=== PATIENT | female | born 1960 | race Native Hawaiian/Other Pacific Islander ===

== ENCOUNTER → 2016-09-10 | Outpatient (CLI) | payer OTHER ==
--- NOTE | 2016-09-12 07:01 | MM ---
Reason for exam: screening (asymptomatic). Last mammogram was performed 13 years and 7 months ago. History: Family history of breast cancer in mother. Took hormonal contraceptives for 4 years. Physical Findings: A clinical breast exam by your physician is recommended on an annual basis and results should be correlated with mammographic findings. MG Screening Mammo w CAD Bilateral CC and MLO view(s) were taken. No prior studies available for comparison. The breast tissue is heterogeneously dense. This may lower the sensitivity of mammography. There is no discrete abnormality. ASSESSMENT: Negative, BI-RAD 1 RECOMMENDATION: Routine screening mammogram of both breasts in 1 year.
== END | disposition home or self-care (01) ==
LOC: RADMAMWWP 14:41
PROVIDERS: ATTEND Internal Medicine
DX: Z12.31 Encounter for screening mammogram for malignant neoplasm of breast (principal)

== ENCOUNTER 2017-10-02 20:21 | Emergency (ER) | payer OTHER ==
[2017-10-02 20:35] VITALS: RESP 18; TEMP 98.8
[2017-10-02] MEDS ORDERED: Acetaminophen-Codeine 300-30mg TAB PO STA (20:47)
--- NOTE | 2017-10-02 20:54 | ED ---
General Adult HPI <Ryan Alvarado - Last Filed: 10/02/17 22:08> - General Source: patient Mode of arrival: ambulatory Limitations: no limitations <Kendall Cleaning - Last Filed: 10/02/17 22:45> - General Chief complaint: Extremity Injury, Upper Stated complaint: Fall, arm injury Time Seen by Provider: 10/02/17 20:39 - History of Present Illness Initial comments: 57-year-old female presents for chief complaint of pain in the left wrist. Patient states she was walking on the ice when she slipped and fell forward onto her left hand. Patient denies hitting her head. Denies any pain in her elbow or right wrist. Patient states she can move her fingers but it is painful. Patient denies ever having surgery on the wrist or injuring that wrist before. (Kendall Cleaning) - Related Data Home Medications Medication Instructions Recorded Confirmed Ascorbic Acid [Vitamin C] 500 mg PO DAILY 10/02/17 10/02/17 Previous Rx's Medication Instructions Recorded HYDROcodone/APAP 5-325MG [[place] 1 tab PO Q6HR PRN #10 tab 10/02/17 5-325] Allergies Allergy/AdvReac Type Severity Reaction Status Date / Time Beef Containing Products Allergy Rash/Hives Verified 10/02/17 20:39 [Beef] egg Allergy Rash/Hives Verified 10/02/17 20:39 peanut Allergy Rash/Hives Verified 10/02/17 20:39 Poultry Allergy Rash/Hives Verified 10/02/17 20:39 Squash Allergy Rash/Hives Verified 10/02/17 20:39 turkey Allergy Rash/Hives Verified 10/02/17 20:39 Review of Systems ROS Other: All systems not noted in ROS Statement are negative. <Ryan Alvarado - Last Filed: 10/02/17 22:08> ROS Other: All systems not noted in ROS Statement are negative. <Kendall Cleaning - Last Filed: 10/02/17 22:45> ROS Statement: Those systems with pertinent positive or pertinent negative responses have been documented in the HPI. Past Medical History Past Medical History: No Reported History History of Any Multi-Drug Resistant Organisms: None Reported Additional Past Surgical History / Comment(s): D&C Past Psychological History: No Psychological Hx Reported Smoking Status: Never smoker Past Alcohol Use History: None Reported Past Drug Use History: None Reported <Kendall Cleaning - Last Filed: 10/02/17 22:45> General Exam Limitations: no limitations Head exam: Present: atraumatic, normocephalic, normal inspection Respiratory exam: Present: normal lung sounds bilaterally. Absent: respiratory distress, wheezes, rales, rhonchi, stridor Cardiovascular Exam: Present: regular rate, normal rhythm, normal heart sounds. Absent: systolic murmur, diastolic murmur, rubs, gallop, clicks GI/Abdominal exam: Present: soft, normal bowel sounds. Absent: distended, tenderness, guarding, rebound, rigid Extremities exam: Present: full ROM (Limited range of motion of the left wrist) , tenderness (Tenderness of the left wrist), normal capillary refill (Left wrist ), other (There is a deformity on the dorsal wrist, sensation is intact within all digits of the left hand.). Absent: pedal edema, joint swelling, calf tenderness <Kendall Cleaning - Last Filed: 10/02/17 22:45> Course <Ryan Alvarado - Last Filed: 10/02/17 22:08> <Kendall Cleaning P - Last Filed: 10/02/17 22:45> Vital Signs 10/02/17 10/02/17 10/02/17 20:32 21:42 22:32 Temperature 98.8 F Pulse Rate 75 67 69 Respiratory 18 18 18 Rate Blood Pressure 160/91 150/83 119/70 O2 Sat by Pulse 99 69 L Oximetry Spoke withThe Dr. Chavez about the patient Dr. Spicer recommended we do want a Volar splint and referred to Dr. Benjie Valladares in the morning, I examined the patient myself there is no neurovascular compromise there is no tenting over the site of the fracture and there is no obvious risk of fracture turning into open fracture (Ryan Alvarado) Medical Decision Making <Ryan Alvarado - Last Filed: 10/02/17 22:08> <Kendall Cleaning - Last Filed: 10/02/17 22:45> - Medical Decision Making 57-year-old female presents to the emergency department for a chief complaint of pain in the left wrist. Patient fell today on her left hand when she slipped on ice. Patient denies hitting her head or her right wrist. X-ray shows an impacted comminuted transverse fracture of the distal radius with proximal and posterior displacement. There is also a large chip fracture of the ulnar styloid process. The patient was given Tylenol with Codeine for pain relief as she requested something not too strong. On exam patient is able to move all digits in the left extremity. Capillary refill is intact. Dr. Alvarado consulted Dr. Chavez. Dr. Chavez recommended not to do a reduction in the emergency department. He recommended follow-up with Dr. Valladares. She was given morphine after we discovered the reduction would not be occurring tonight. Patient will be given a starter pack of [place] and a small prescription of [place] as well. Patient agrees to follow up with Dr. Valladares tomorrow. (Kendall Cleaning) Disposition <Ryan Alvarado - Last Filed: 10/02/17 22:08> Time of Disposition: 22:38 <Kendall Cleaning - Last Filed: 10/02/17 22:45> Clinical Impression: Wrist fracture Disposition: HOME SELF-CARE Condition: Good Instructions: Wrist Fracture in Adults (ED) Additional Instructions: Please follow up with orthopedics tomorrow. Please use [place] for pain relief. Please return to the emergency department if you begin to lose function of your hand or symptoms of pain worsen. Prescriptions: HYDROcodone/APAP 5-325MG [[place] 5-325] 1 tab PO Q6HR PRN #10 tab PRN Reason: Pain Referrals: None,Stated [Primary Care Provider] - 1-2 days Poncho Valladares DO [Doctor of Osteopathic Medicine] - 1-2 days
--- NOTE | 2017-10-02 21:19 | XR ---
EXAMINATION TYPE: XR wrist limited LT DATE OF EXAM: 10/02/2017 COMPARISON: NONE HISTORY: Fell today. Pain. TECHNIQUE: 3 views FINDINGS: There is impacted comminuted transverse fracture of the distal radius. There is proximal an d posterior displacement of the distal major fragments of 1.5 cm. There is no dislocation. There is a large chip fracture of the ulnar styloid process. Carpal bones are intact. IMPRESSION: Fractures of the distal radius and ulna as above.
[2017-10-02] MEDS ORDERED: MORPHINE SULFATE 4 MG/ML SYRINGE IVP STA (22:03)
[2017-10-02] MEDS ORDERED: ONDANSETRON 4 MG/2 ML VIAL IVP STA (22:04)
[2017-10-02 22:33] VITALS: BP 119/70; PULSE 69
[2017-10-02] MEDS ORDERED: ACET/COD 300 MG/30 MG STARTER PACK 6 TAB BTL PO STA (22:40)
== END 2017-10-02 22:59 | disposition home or self-care (01) ==
LOC: EC 20:21
DX: S52.502A Unspecified fracture of the lower end of left radius, initial encounter for closed fracture (principal); S52.612A Displaced fracture of left ulna styloid process, initial encounter for closed fracture; Z91.018 Allergy to other foods; Z91.011 Allergy to milk products; Z91.010 Allergy to peanuts; W00.0XXA Fall on same level due to ice and snow, initial encounter; Y93.01 Activity, walking, marching and hiking
CPT/HCPCS: 73100; 99283; 29125; 96374; 96375; J2270; J2405

== ENCOUNTER 2018-07-12 07:13 | Emergency (ER) | payer OTHER ==
[2018-07-12 07:19] VITALS: BP 154/87; PULSE 81; RESP 18; TEMP 98.1
--- NOTE | 2018-07-12 07:45 | ED ---
General Adult HPI - General Chief complaint: Allergic Reaction Stated complaint: Allergic Reaction Time Seen by Provider: 07/12/18 07:15 Source: patient, RN notes reviewed Mode of arrival: ambulatory Limitations: no limitations - History of Present Illness Initial comments: 57-year-old female presents with one-day history of swelling to the left eyelid. Patient concerned this may be ALLERGIC reaction and she has had many food ALLERGIES in the past. Describes swelling is only affecting her left eye. No tongue or lip swelling. No fever. No concern for ALLERGIC contact. She has noted some crusting to the outer lid. No change in vision. No pain in the eye itself. - Related Data Home Medications Medication Instructions Recorded Confirmed Ascorbic Acid [Vitamin C] 500 mg PO DAILY 10/02/17 10/02/17 Previous Rx's Medication Instructions Recorded HYDROcodone/APAP 5-325MG [[place] 1 tab PO Q6HR PRN #10 tab 10/02/17 5-325] Cephalexin [Keflex] 500 mg PO Q12HR #20 cap 07/12/18 Erythromycin Ophth Oint [Romycin 1 applic LEFT EYE QID #3.5 gm 07/12/18 Ophth Oint] Sulfamethox-Tmp 800-160Mg [Bactrim 1 tab PO Q12HR #20 tab 07/12/18 DS 800-160 mg] Allergies Allergy/AdvReac Type Severity Reaction Status Date / Time Beef Containing Products Allergy Rash/Hives Verified 07/12/18 07:19 [Beef] egg Allergy Rash/Hives Verified 07/12/18 07:19 peanut Allergy Rash/Hives Verified 07/12/18 07:19 Poultry Allergy Rash/Hives Verified 07/12/18 07:19 Squash Allergy Rash/Hives Verified 07/12/18 07:19 turkey Allergy Rash/Hives Verified 07/12/18 07:19 Review of Systems ROS Statement: Those systems with pertinent positive or pertinent negative responses have been documented in the HPI. ROS Other: All systems not noted in ROS Statement are negative. Past Medical History Past Medical History: No Reported History History of Any Multi-Drug Resistant Organisms: None Reported Additional Past Surgical History / Comment(s): D&C Past Psychological History: No Psychological Hx Reported Smoking Status: Never smoker Past Alcohol Use History: None Reported Past Drug Use History: None Reported General Exam Limitations: no limitations General appearance: alert, in no apparent distress Head exam: Present: atraumatic, normocephalic Eye exam: Present: PERRL, periorbital swelling, periorbital tenderness. Absent : conjunctival injection ENT exam: Present: normal exam, normal oropharynx, TM's normal bilaterally Neck exam: Present: normal inspection, full ROM. Absent: tenderness, meningismus Respiratory exam: Present: normal lung sounds bilaterally. Absent: respiratory distress, wheezes, rales Cardiovascular Exam: Present: regular rate, normal rhythm GI/Abdominal exam: Present: soft, distended Extremities exam: Present: normal inspection, normal capillary refill. Absent: pedal edema Neurological exam: Present: alert, oriented X3, CN II-XII intact. Absent: motor sensory deficit Course Vital Signs 07/12/18 07:16 Temperature 98.1 F Pulse Rate 81 Respiratory 18 Rate Blood Pressure 154/87 O2 Sat by Pulse 99 Oximetry Medical Decision Making - Medical Decision Making 57-year-old female presenting with left periorbital swelling. On exam there is edema to the lid with yellow crusting on the extensor surface. There is no conjunctivitis, no scleral injection, patient has normal vision. Extraocular motions are completely intact, normal pupillary reflex. There is no proptosis. Patient is well-appearing on remainder of exam. As this is unilateral swelling with no other tongue or lip swelling. I suspect an infectious component more than ALLERGIC. She'll be treated for periorbital cellulitis. She will return with worsening pain, development of fever. Disposition Clinical Impression: Periorbital cellulitis of left eye Disposition: HOME SELF-CARE Condition: Good Instructions: Periorbital Cellulitis in Adults (ED) Prescriptions: Cephalexin [Keflex] 500 mg PO Q12HR #20 cap Erythromycin Ophth Oint [Romycin Ophth Oint] 1 applic LEFT EYE QID #3.5 gm Sulfamethox-Tmp 800-160Mg [Bactrim DS 800-160 mg] 1 tab PO Q12HR #20 tab Is patient prescribed a controlled substance at d/c from ED?: No Referrals: Lamonte Reynolds MD [Primary Care Provider] - 1-2 days Isidro Snider MD [STAFF PHYSICIAN] - 1-2 days Time of Disposition: 07:39
== END 2018-07-12 07:55 | disposition home or self-care (01) ==
LOC: EC 07:13
DX: L03.213 Periorbital cellulitis (principal); Z91.018 Allergy to other foods; Z91.012 Allergy to eggs; Z91.010 Allergy to peanuts
CPT/HCPCS: 99283

== ENCOUNTER → 2018-08-20 | Outpatient (CLI) | payer OTHER ==
--- NOTE | 2018-08-22 09:01 | MM ---
Reason for exam: screening (asymptomatic). Last mammogram was performed 1 year and 11 months ago. History: Family history of breast cancer in mother. Took hormonal contraceptives for 4 years. Physical Findings: A clinical breast exam by your physician is recommended on an annual basis and results should be correlated with mammographic findings. MG Screening Mammo w CAD Bilateral CC and MLO view(s) were taken. Prior study comparison: September 10, 2016, bilateral MG screening mammo w CAD. February 09, 2003, bilateral screening mammogram. The breast tissue is heterogeneously dense. This may lower the sensitivity of mammography. No significant changes when compared with prior studies. ASSESSMENT: Benign, BI-RAD 2 RECOMMENDATION: Routine screening mammogram of both breasts in 1 year.
== END | disposition home or self-care (01) ==
LOC: RADMAMWWP 08:24
PROVIDERS: ATTEND Internal Medicine
DX: Z12.31 Encounter for screening mammogram for malignant neoplasm of breast (principal)
CPT/HCPCS: 77067

== ENCOUNTER → 2019-02-26 | Outpatient (CLI) | payer OTHER ==
--- NOTE | 2019-02-26 08:26 | US ---
EXAMINATION TYPE: US liver DATE OF EXAM: 02/26/2019 COMPARISON: NONE CLINICAL HISTORY: R94.5 Abnormal liver function test. abn labs, npo EXAM MEASUREMENTS: Liver Length: 12.9 cm Gallbladder Wall: 0.2 cm CBD: 0.3 cm Right Kidney: 10.2 x 4.3 x 3.8 cm Pancreas: Tail obscured by overlying bowel gas Liver: Appears echogenic in appearance heterogenous Gallbladder: wnl Evidence for sonographic De Leon's sign: neg CBD: wnl Right Kidney: wnl Visualized liver is heterogeneously hyperechoic without intrahepatic ductal dilatation. No surroundin g ascites. IMPRESSION: Diffuse fatty infiltration of liver versus product of underlying hepatocellular disease. Consider imaging guided random biopsy for tissue analysis.
== END | disposition home or self-care (01) ==
LOC: RADUSWWP 07:04
PROVIDERS: ATTEND Internal Medicine
DX: R94.5 Abnormal results of liver function studies (principal)
CPT/HCPCS: 76705

== ENCOUNTER 2020-06-30 07:56 | Emergency (ER) | payer OTHER ==
[2020-06-30 08:02] VITALS: BP 161/64; PULSE 91; RESP 18; TEMP 98.6
[2020-06-30] MEDS ORDERED: FAMOTIDINE 20 MG TAB PO STA (08:10)
[2020-06-30] MEDS ORDERED: methylPREDNISolone SOD SUCCI 125 MG/2 ML VIAL IM ONE (08:10)
[2020-06-30] MEDS ORDERED: LORATADINE 10 MG TAB PO STA (08:11)
--- NOTE | 2020-06-30 08:12 | ED ---
Eye Problem HPI - General Chief complaint: Eye Problems Stated complaint: Swollen eye Time Seen by Provider: 06/30/20 08:05 Source: patient, family Mode of arrival: ambulatory Limitations: no limitations - History of Present Illness Initial comments: 59yo female presenting for left eyelid swelling. pt states that she woke up with left eye swollen shut. she states it has been improving with ice placement. states symptoms identical to when she has had allergic reaction in the past. patient states that she was vaccumming and her daughter had dog over (which is allergic to). She states that she thinks this is cause, denies pain. Denies headaches, nausea, visual changes, denies redness of eye itself. Patient denies tongue/lip swelling, wheezing SOB or additional complaints. pt appears well nontoxic in no acute distress on arrival. - Related Data Home Medications Medication Instructions Recorded Confirmed Ascorbic Acid [Vitamin C] 500 mg PO DAILY 10/02/17 10/02/17 Previous Rx's Medication Instructions Recorded HYDROcodone/APAP 5-325MG [[place] 1 tab PO Q6HR PRN #10 tab 10/02/17 5-325] Cephalexin [Keflex] 500 mg PO Q12HR #20 cap 07/12/18 Erythromycin Ophth Oint [Romycin 1 applic LEFT EYE QID #3.5 gm 07/12/18 Ophth Oint] Sulfamethox-Tmp 800-160Mg [Bactrim 1 tab PO Q12HR #20 tab 07/12/18 DS 800-160 mg] Loratadine [Claritin] 5 mg PO DAILY 5 Days #5 tab 06/30/20 predniSONE 50 mg PO DAILY 3 Days #3 tab 06/30/20 Allergies Allergy/AdvReac Type Severity Reaction Status Date / Time Beef Containing Products Allergy Rash/Hives Verified 06/30/20 08:04 [Beef] egg Allergy Rash/Hives Verified 06/30/20 08:04 peanut Allergy Rash/Hives Verified 06/30/20 08:04 Penicillins Allergy Rash/Hives Verified 06/30/20 08:04 Poultry Allergy Rash/Hives Verified 06/30/20 08:04 Squash Allergy Rash/Hives Verified 06/30/20 08:04 turkey Allergy Rash/Hives Verified 06/30/20 08:04 erythromycin base AdvReac Nausea & Verified 06/30/20 08:04 [From Erythrocin] Vomiting & Diarrhea Review of Systems ROS Statement: Those systems with pertinent positive or pertinent negative responses have been documented in the HPI. ROS Other: All systems not noted in ROS Statement are negative. Past Medical History Past Medical History: Thyroid Disorder History of Any Multi-Drug Resistant Organisms: None Reported Additional Past Surgical History / Comment(s): D&C Past Psychological History: No Psychological Hx Reported Smoking Status: Never smoker Past Alcohol Use History: None Reported Past Drug Use History: None Reported General Exam - General Exam Comments Initial Comments: General: The patient is awake and alert, in no distress, and does not appear acutely ill. Eye: +3 mm pupils are equal, round and reactive to light, extra-ocular movements are intact. No nystagmus. There is normal conjunctiva bilaterally. No signs of icterus. Faint redness surrounding the left eye boggy in appearance of eye lid/under eye. no tenderness,no localized swelling to lid such as stye. Ears, nose, mouth and throat: There are moist mucous membranes and no oral lesions. Musculoskeletal: Normal ROM, no tenderness. Strength 5/5. Sensation intact. Pulses equal bilaterally 2+. Neurological: A&O x 3. CN II-XII intact, There are no obvious motor or sensory deficits. Coordination appears grossly intact. Speech is normal. Skin: Skin is warm and dry and no rashes or lesions are noted. Psychiatric: Cooperative, appropriate mood & affect, normal judgment. Limitations: no limitations Course Vital Signs 06/30/20 07:57 Temperature 98.6 F Pulse Rate 91 Respiratory 18 Rate Blood Pressure 161/64 O2 Sat by Pulse 99 Oximetry Medical Decision Making - Medical Decision Making Findings on physical exam appear most consistent with allergic reaction (great improvement quickly in swelling since AM with application of ice). does not appear infectious at this time. with hx of previous allergic reactions, pt will be initiated on short course of steroids and is to f/u with pcp. Dr Perez is agreeable to care plan and discharge. Disposition Clinical Impression: Allergic reaction, Swollen eyelid Disposition: HOME SELF-CARE Condition: Good Additional Instructions: Please use medication as discussed. Please follow-up with family doctor in the next 24 hours, if swelling worsening or becomes painful return to the ER. Please return to emergency room if the symptoms increase or worsen or for any other concerns. Prescriptions: Loratadine [Claritin] 5 mg PO DAILY 5 Days #5 tab predniSONE 50 mg PO DAILY 3 Days #3 tab Is patient prescribed a controlled substance at d/c from ED?: No Referrals: Isidro Snider MD [Primary Care Provider] - 1-2 days Time of Disposition: 08:12
== END 2020-06-30 08:31 | disposition home or self-care (01) ==
LOC: EC 07:56
DX: T78.40XA Allergy, unspecified, initial encounter (principal); Z91.018 Allergy to other foods; Z91.010 Allergy to peanuts; Z88.0 Allergy status to penicillin; Z91.012 Allergy to eggs; Z91.09 Other allergy status, other than to drugs and biological substances; Z88.1 Allergy status to other antibiotic agents
CPT/HCPCS: 99283; 96372; J2930

== ENCOUNTER 2020-09-13 16:09 | Emergency (ER) | payer OTHER ==
[2020-09-13 16:19] VITALS: RESP 18
[2020-09-13] MEDS ORDERED: FLUORESCEIN STRIPS 1 MG STRIP LEFT EYE ONE (17:20)
[2020-09-13] MEDS ORDERED: PROPARACAINE 0.5% OPHTH DROPS 15 ML BTL RIGHT EYE STA (17:20)
[2020-09-13] MEDS ORDERED: predniSONE 50 MG TAB PO STA (17:44)
--- NOTE | 2020-09-13 17:45 | ED ---
Eye Problem HPI - General Chief complaint: Eye Problems Stated complaint: Eye allergies/swelling Time Seen by Provider: 09/13/20 17:06 Source: patient Mode of arrival: ambulatory Limitations: no limitations - History of Present Illness Initial comments: 59-year-old female presents to the emergency department with a chief complaint of left eye swelling. Patient reports she has ALLERGIES at this is a common occurrence for her. Patient states typically treated with [id number] antihistamines but this time it does not work. Patient states she has been evaluated previously in the emergency department was discharged with prednisone. Eyes any blurry vision or pain with extra ocular movements but does report itching. Denies significant erythema around the eye. Denies any foreign bodies or injuries to the eye. She does not wear eye contacts, Only glasses. - Related Data Home Medications Medication Instructions Recorded Confirmed Ascorbic Acid [Vitamin C] 500 mg PO DAILY 10/02/17 10/02/17 Previous Rx's Medication Instructions Recorded HYDROcodone/APAP 5-325MG [[place] 1 tab PO Q6HR PRN #10 tab 10/02/17 5-325] Cephalexin [Keflex] 500 mg PO Q12HR #20 cap 07/12/18 Erythromycin Ophth Oint [Romycin 1 applic LEFT EYE QID #3.5 gm 07/12/18 Ophth Oint] Sulfamethox-Tmp 800-160Mg [Bactrim 1 tab PO Q12HR #20 tab 07/12/18 DS 800-160 mg] Loratadine [Claritin] 5 mg PO DAILY 5 Days #5 tab 06/30/20 predniSONE 50 mg PO DAILY 3 Days #3 tab 06/30/20 Ketotifen 0.025% Ophth Soln 1 drop BOTH EYES BID #1 bottle 09/13/20 [Zaditor] Allergies Allergy/AdvReac Type Severity Reaction Status Date / Time Beef Containing Products Allergy Rash/Hives Verified 09/13/20 16:19 [Beef] egg Allergy Rash/Hives Verified 09/13/20 16:19 peanut Allergy Rash/Hives Verified 09/13/20 16:19 Penicillins Allergy Rash/Hives Verified 09/13/20 16:19 Poultry Allergy Rash/Hives Verified 09/13/20 16:19 Squash Allergy Rash/Hives Verified 09/13/20 16:19 turkey Allergy Rash/Hives Verified 09/13/20 16:19 erythromycin base AdvReac Nausea & Verified 09/13/20 16:19 [From Erythrocin] Vomiting & Diarrhea Review of Systems ROS Statement: Those systems with pertinent positive or pertinent negative responses have been documented in the HPI. ROS Other: All systems not noted in ROS Statement are negative. Past Medical History Past Medical History: Thyroid Disorder History of Any Multi-Drug Resistant Organisms: None Reported Additional Past Surgical History / Comment(s): D&C Past Psychological History: No Psychological Hx Reported Smoking Status: Never smoker Past Alcohol Use History: None Reported Past Drug Use History: None Reported General Exam Limitations: no limitations General appearance: alert, in no apparent distress Head exam: Present: atraumatic, normocephalic, normal inspection Eye exam: Present: normal appearance, PERRL, EOMI, conjunctival injection (Very mild conjunctival injection.). Absent: scleral icterus, nystagmus, periorbital swelling, periorbital tenderness, other (Negative Tae sign. Fluorescence stain are unremarkable. No pain with extra ocular movements.) Pupils: Present: normal accommodation ENT exam: Present: normal exam, normal oropharynx, mucous membranes moist Neck exam: Present: normal inspection, full ROM. Absent: tenderness Respiratory exam: Present: normal lung sounds bilaterally. Absent: respiratory distress Cardiovascular Exam: Present: regular rate, normal rhythm, normal heart sounds Extremities exam: Present: normal inspection, full ROM, normal capillary refill. Absent: tenderness Back exam: Present: normal inspection, full ROM. Absent: tenderness Neurological exam: Present: alert, oriented X3 Psychiatric exam: Present: normal affect, normal mood Skin exam: Present: warm, dry, intact, normal color Course Vital Signs 09/13/20 09/13/20 16:16 17:53 Temperature 98.6 F 98 F Pulse Rate 101 H 78 Respiratory 18 18 Rate Blood Pressure 204/111 158/92 O2 Sat by Pulse 99 96 Oximetry Medical Decision Making - Medical Decision Making 59-year-old female presents to the emergency department for chief complaint of left eye pain. On physical examination, she has very mild left-sided conjunctival injections. She also has itching to the left eye. No blurry vision or pain with extra ocular movement. Fluorescence stain reveals no acute findings. Negative Tae sign. Patient will be discharged with antihistamine ophthalmic drops. Patient also given a single dose of prednisone here. She has an appointment with the primary care physician tomorrow. I also advised her to follow-up with an field mechanic. Advised to apply cold compress to the left eye. Also advised to take Benadryl at home. Return parameters discussed the patient was a worsening agreeable. Disposition Clinical Impression: Eye swelling, left Disposition: HOME SELF-CARE Condition: Stable Instructions (If sedation given, give patient instructions): Eye Lubricant (Into the eye) Additional Instructions: Take prescribed medication as directed. Follow-up with field mechanic. Apply ice compress. Return to emergency department if symptoms worsen. Prescriptions: Ketotifen 0.025% Ophth Soln [Zaditor] 1 drop BOTH EYES BID #1 bottle Is patient prescribed a controlled substance at d/c from ED?: No Referrals: Isidro Snider MD [Primary Care Provider] - 1-2 days Time of Disposition: 17:45
[2020-09-13 17:54] VITALS: BP 158/92; PULSE 78; TEMP 98
== END 2020-09-13 17:52 | disposition home or self-care (01) ==
LOC: EC 16:09
DX: H57.89 Other specified disorders of eye and adnexa (principal); Z88.0 Allergy status to penicillin; Z88.1 Allergy status to other antibiotic agents; Z91.012 Allergy to eggs; Z91.010 Allergy to peanuts; Z91.018 Allergy to other foods
CPT/HCPCS: 99283; J7512

== ENCOUNTER 2020-09-15 00:44 | Emergency (ER) | payer OTHER ==
[2020-09-15 00:51] VITALS: BP 177/98; PULSE 88; RESP 20; TEMP 98.5
--- NOTE | 2020-09-15 00:57 | ED ---
Eye Problem HPI - General Chief complaint: Eye Problems Stated complaint: Eye Problems, revisit Time Seen by Provider: 09/15/20 00:56 Source: patient, family, RN notes reviewed, old records reviewed Mode of arrival: ambulatory Limitations: no limitations - History of Present Illness Initial comments: This is a 60-year-old female DEL with swelling around that left eye. Patient states his history of same complaint and states his steroids shot always works, patient states his symptoms of been going on without change in vision. No injuries no fevers. He denies significant eye pain swelling is located in the lower left lower aspect of her left eye which she states his right always is. Patient unsure of the cause of this issue. She has seen bleach maker in the past without any significant diagnoses MD chief complaint: other (Edema around left eye) -: days(s) Onset Description: gradual Location: left eye Place: home If Injury: none Eye Symptoms: other (None) Severity: mild Consistency: constant Context: other (History of the same) Associated Symptoms: none Treatments Prior to Arrival: none - Related Data Home Medications Medication Instructions Recorded Confirmed Ascorbic Acid [Vitamin C] 500 mg PO DAILY 10/02/17 10/02/17 Previous Rx's Medication Instructions Recorded HYDROcodone/APAP 5-325MG [Trafalgar 1 tab PO Q6HR PRN #10 tab 10/02/17 5-325] Cephalexin [Keflex] 500 mg PO Q12HR #20 cap 07/12/18 Erythromycin Ophth Oint [Romycin 1 applic LEFT EYE QID #3.5 gm 07/12/18 Ophth Oint] Sulfamethox-Tmp 800-160Mg [Bactrim 1 tab PO Q12HR #20 tab 07/12/18 DS 800-160 mg] Loratadine [Claritin] 5 mg PO DAILY 5 Days #5 tab 06/30/20 predniSONE 50 mg PO DAILY 3 Days #3 tab 06/30/20 Ketotifen 0.025% Ophth Soln 1 drop BOTH EYES BID #1 bottle 09/13/20 [Zaditor] Cephalexin [Keflex] 500 mg PO Q6HR #40 cap 09/15/20 predniSONE 50 mg PO DAILY #5 tab 09/15/20 Allergies Allergy/AdvReac Type Severity Reaction Status Date / Time Beef Containing Products Allergy Rash/Hives Verified 09/15/20 00:51 [Beef] egg Allergy Rash/Hives Verified 09/15/20 00:51 peanut Allergy Rash/Hives Verified 09/15/20 00:51 Penicillins Allergy Rash/Hives Verified 09/15/20 00:51 Poultry Allergy Rash/Hives Verified 09/15/20 00:51 Squash Allergy Rash/Hives Verified 09/15/20 00:51 turkey Allergy Rash/Hives Verified 09/15/20 00:51 erythromycin base AdvReac Nausea & Verified 09/15/20 00:51 [From Erythrocin] Vomiting & Diarrhea Review of Systems ROS Statement: Those systems with pertinent positive or pertinent negative responses have been documented in the HPI. ROS Other: All systems not noted in ROS Statement are negative. Past Medical History Past Medical History: Thyroid Disorder History of Any Multi-Drug Resistant Organisms: None Reported Additional Past Surgical History / Comment(s): D&C Past Psychological History: No Psychological Hx Reported Smoking Status: Never smoker Past Alcohol Use History: None Reported Past Drug Use History: None Reported General Exam Limitations: no limitations General appearance: alert, in no apparent distress Head exam: Present: atraumatic, normocephalic, normal inspection Eye exam: Present: normal appearance, PERRL, EOMI, other (No change in vision left eye does have some periorbital edema and erythema). Absent: scleral icterus, conjunctival injection, periorbital swelling ENT exam: Present: normal exam, mucous membranes moist Neck exam: Present: normal inspection. Absent: tenderness, meningismus, lymphadenopathy Respiratory exam: Present: normal lung sounds bilaterally. Absent: respiratory distress, wheezes, rales, rhonchi, stridor Cardiovascular Exam: Present: regular rate, normal rhythm, normal heart sounds. Absent: systolic murmur, diastolic murmur, rubs, gallop, clicks GI/Abdominal exam: Present: soft, normal bowel sounds. Absent: distended, tenderness, guarding, rebound, rigid Extremities exam: Present: normal inspection, full ROM, normal capillary refill. Absent: tenderness, pedal edema, joint swelling, calf tenderness Back exam: Present: normal inspection Neurological exam: Present: alert, oriented X3, CN II-XII intact Psychiatric exam: Present: normal affect, normal mood Skin exam: Present: warm, dry, intact, normal color. Absent: rash Course Vital Signs 09/15/20 00:47 Temperature 98.5 F Pulse Rate 88 Respiratory 20 Rate Blood Pressure 177/98 O2 Sat by Pulse 97 Oximetry - Reevaluation(s) Reevaluation #1: Medical record is reviewed Patient symptoms are improved here in the ER Patient informed results and questions have been answered Patient family feel comfortable for discharge Medical Decision Making - Medical Decision Making 60 female with history of eye cellulitis coming in for similar. Patient states steroid shot always clear symptoms patient given treatment here in the ER and can be discharged home Disposition Clinical Impression: Eye swelling, left, Periorbital cellulitis Disposition: HOME SELF-CARE Instructions (If sedation given, give patient instructions): Periorbital Cellulitis in Adults (ED) Prescriptions: Cephalexin [Keflex] 500 mg PO Q6HR #40 cap predniSONE 50 mg PO DAILY #5 tab Is patient prescribed a controlled substance at d/c from ED?: No Referrals: Isidro Snider MD [Primary Care Provider] - 1-2 days Kieran Funes MD [STAFF PHYSICIAN] - 1-2 days
[2020-09-15] MEDS ORDERED: DEXAMETHASONE SOD PHOSPHATE 10 MG/ML 1 ML VIAL IM STA (01:22)
[2020-09-15] MEDS ORDERED: CEPHALEXIN 500 MG CAP PO STA (01:23)
[2020-09-15] MEDS ORDERED: CEPHALEXIN 500MG STARTER PACK 4 CAP BTL PO STA (01:23)
== END 2020-09-15 01:39 | disposition home or self-care (01) ==
LOC: EC 00:44
DX: L03.213 Periorbital cellulitis (principal); Z88.0 Allergy status to penicillin; Z88.1 Allergy status to other antibiotic agents; Z91.010 Allergy to peanuts; Z91.012 Allergy to eggs; Z91.018 Allergy to other foods
CPT/HCPCS: 99283; 96372; J1100

== ENCOUNTER → 2020-11-02 | Outpatient (CLI) | payer OTHER ==
--- NOTE | 2020-11-02 12:44 | MM ---
Reason for exam: screening (asymptomatic). Last mammogram was performed 2 years and 2 months ago. History: Family history of breast cancer in mother. Took hormonal contraceptives for 4 years. Physical Findings: A clinical breast exam by your physician is recommended on an annual basis and results should be correlated with mammographic findings. MG Screening Mammo w CAD Bilateral CC and MLO view(s) were taken. Prior study comparison: August 20, 2018, bilateral MG screening mammo w CAD. September 10, 2016, bilateral MG screening mammo w CAD. The breast tissue is heterogeneously dense. This may lower the sensitivity of mammography. There are benign appearing round calcifications in the right breast. There is no discrete abnormality. ASSESSMENT: Negative, BI-RAD 1 RECOMMENDATION: Routine screening mammogram of both breasts in 1 year.
--- NOTE | 2020-11-02 12:45 | BD ---
EXAMINATION TYPE: Axial Bone Density DATE OF EXAM: 11/02/2020 COMPARISON: NONE CLINICAL HISTORY: Height: 59 Weight: 143.3 FRAX RISK QUESTIONS: Alcohol (3 or more units per day): no Family History (Parent hip fracture): no Glucocorticoids (More than 3mos): no (Ex: prednisone, prednisolone, methylprednisolone, dexamethasone, and hydrocortisone). History of Fracture in Adulthood: yes Secondary Osteoporosis: 1. Type 1 Diabetes: no 2. Hyperthyroidism: no 3. Menopause before 45: no 4. Malnutrition: no 5. Chronic liver disease: no Rheumatoid Arthritis: no Current Tobacco Use: no RISK FACTORS HISTORY OF: History of Wrist Fracture: right When: 2 years ago Surgery to Spine/Hip(right/left)/Wrist (right/left): no Family History of Osteoporosis: no Active: sometimes Diet low in dairy products/other sources of calcium: yes Postmenopausal woman: age 44 Lost more than 2 inches in height since high school: no MEDICATIONS: none Additional History: EXAM MEASUREMENTS: Bone mineral densitometry was performed using the [employer] System. Bone mineral density as measured about the Lumbar spine is: ----- L1-L4(G/cm2): 1.027 T Score Values are as follows: ----- L2: -1.0 ----- L3: -1.0 ----- L4: -2.0 ----- L1-L4: -1.3 Bone mineral density : baseline Bone mineral density about the R hip (g/cm2): 0.847 Bone mineral density about the L hip (g/cm2): 0.860 T Score values are as follows: -----R Neck: -1.4 -----L Neck: -1.3 -----R Total: -0.6 -----L Total: -0.6 Bone mineral density : baseline IMPRESSION: Osteopenia (T Score between -2.5 and -1). There is slightly increased risk of fracture and the patient may be considered for treatment. Re-Screen 2-5 years. NOTE: T-SCORE=SD OF THE YOUNG ADULT MEAN.
== END | disposition home or self-care (01) ==
LOC: RADMAMWWP 08:23
PROVIDERS: ATTEND Internal Medicine
DX: Z12.31 Encounter for screening mammogram for malignant neoplasm of breast (principal); M85.80 Other specified disorders of bone density and structure, unspecified site
CPT/HCPCS: 77067; 77080

== ENCOUNTER → 2022-01-02 | Outpatient (CLI) | payer OTHER ==
--- NOTE | 2022-01-03 11:56 | MM ---
Reason for Exam: Screening (asymptomatic). Last mammogram was performed 1 year(s) and 2 month(s) ago. Patient History: Menarche at age 13. First Full-Term at age 27. Postmenopausal. Patient has history of breast feeding. Patient used Hormonal Contraceptives for 4 years. Mother had breast cancer, age 64. Risk Values: Brook 5 year model risk: 2.7%. NCI Lifetime model risk: 12.1%. Prior Study Comparison: 09/10/2016 Bilateral Screening Mammogram, [facility]. 08/20/2018 Bilateral Screening Mammogram, [facility]. 11/02/2020 Bilateral Screening Mammogram, [facility]. Tissue Density: The breast tissue is heterogeneously dense. This may lower the sensitivity of mammography. Findings: Analyzed By CAD. There is 8 mm oval obscured mass in the anterior depth upper outer aspect approximately 5 cm distance from nipple appears to be new or More prominent from prior studies. Overall Assessment: Incomplete: need additional imaging evaluation, BI-RAD 0 Management: Diagnostic Breast Ultrasound of the right breast. Targeted ultrasound right breast upper outer aspect. If ultrasound is negative further mammographic workup would BE advised. Electronically signed and approved by: Harley Mcclendon M.D.
== END | disposition home or self-care (01) ==
LOC: RADMAMWWP 08:59
PROVIDERS: ATTEND Internal Medicine
DX: Z12.31 Encounter for screening mammogram for malignant neoplasm of breast (principal); Z78.0 Asymptomatic menopausal state; Z80.3 Family history of malignant neoplasm of breast
CPT/HCPCS: 77067

== ENCOUNTER → 2022-04-10 | Outpatient (CLI) | payer OTHER ==
--- NOTE | 2022-04-10 10:46 | US ---
EXAMINATION TYPE: US liver DATE OF EXAM: 04/10/2022 COMPARISON: NONE CLINICAL HISTORY: R94.5 ABN LIVER FUNCTION TESTS. Abnormal labs TECHNIQUE: Multiple sonographic images of the right upper quadrant are obtained. FINDINGS: EXAM MEASUREMENTS: Liver Length: 14.7 cm Gallbladder Wall: 0.1 cm CBD: 0.4 cm Right Kidney: 10.7 x 4.6 x 3.7 cm Pancreas: Tail obscured by overlying bowel gas, limited visualization Liver: Echogenic and coarse Gallbladder: wnl Evidence for sonographic De Leon's sign: neg CBD: wnl Right Kidney: No hydronephrosis or masses seen IMPRESSION: Hepatocellular disease commonly relating to hepatic steatosis.
== END | disposition home or self-care (01) ==
LOC: RADUSWWP 09:41
PROVIDERS: ATTEND Internal Medicine
DX: K76.0 Fatty (change of) liver, not elsewhere classified (principal); R94.5 Abnormal results of liver function studies
CPT/HCPCS: 76705

== ENCOUNTER → 2023-05-17 | Outpatient (CLI) | payer OTHER ==
--- NOTE | 2023-05-17 15:01 | MM ---
Reason for Exam: Screening (asymptomatic). Last mammogram was performed 1 year(s) and 4 month(s) ago. Patient History: Menarche at age 13. First Full-Term at age 27. Postmenopausal. Patient has history of breast feeding. Patient used Hormonal Contraceptives for 4 years. Mother had breast cancer, age 64. Risk Values: Brook 5 year model risk: 2.8%. NCI Lifetime model risk: 11.7%. Prior Study Comparison: 08/20/2018 Bilateral Screening Mammogram, [facility]. 11/02/2020 Bilateral Screening Mammogram, [facility]. 01/02/2022 Bilateral MG screening mammo w CAD, [facility]. Tissue Density: The breast tissue is heterogeneously dense. This may lower the sensitivity of mammography. Findings: Analyzed By CAD. There is no suspicious group of microcalcifications in either breast. Benign calcifications within the right breast. 3 mm nodule within the posterior right breast outer lower. Asymmetry demonstrated within the central right breast only on MLO view at middle depth. Overall Assessment: Incomplete: need additional imaging evaluation, BI-RAD 0 Management: Diagnostic Mammogram of the right breast. Diagnostic Breast Ultrasound of the right breast. A clinical breast exam by your physician is recommended on an annual basis and results should be correlated with mammographic findings. [facility] will attempt to contact patient to return for supplemental views and ultrasound if indicated. Note on Brook scores and lifetime risk: 1. A Brook score greater than 3% is considered moderate risk. If this is the case, consider specialist referral to assess eligibility for a risk reducing agent. If overall lifetime risk for the development of breast cancer is 20% or higher, the patient may qualify for future screening with alternating mammogram and breast MRI. Electronically signed and approved by: Zach Almeida D.O.
== END | disposition home or self-care (01) ==
LOC: RADMAMWWP 14:39
PROVIDERS: ATTEND Internal Medicine
DX: Z12.31 Encounter for screening mammogram for malignant neoplasm of breast (principal); Z78.0 Asymptomatic menopausal state; Z80.3 Family history of malignant neoplasm of breast
CPT/HCPCS: 77063; 77067